=== PATIENT | female | born 1970 | race Caucasian/White ===

== ENCOUNTER 2021-05-03 03:31 | Emergency (ER) | payer OTHER ==
[~2021-05-03] VITALS: Ht 162.6 cm; Wt 50.3 kg
[2021-05-03 03:45] VITALS: BP 132/94
--- NOTE | 2021-05-03 04:15 | NUR ---
[employer] AT BEDSIDE.
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
== END 2021-05-03 04:24 | disposition left against medical advice (07) ==
LOC: ER 03:42
DX: Z53.21 Procedure and treatment not carried out due to patient leaving prior to being seen by health care provider (principal); M25.522 Pain in left elbow; F41.9 Anxiety disorder, unspecified

== ENCOUNTER 2021-05-14 09:38 | Emergency (ER) | payer OTHER ==
[~2021-05-14] VITALS: Ht 162.6 cm; Wt 48.1 kg
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
--- NOTE | 2021-05-14 12:36 | NUR ---
PT SLEEPING IN BED, EASILY AROUSABLE. VS STABLE
[2021-05-14] MEDS ORDERED: NAPR-1009 PO (13:58)
--- NOTE | 2021-05-14 14:04 | NUR ---
PT WAITING TO SPEAK WITH [employer] HELPER
[2021-05-14 14:40] VITALS: BP 142/76
--- NOTE | 2021-05-14 15:12 | NUR ---
PT SLEEPING IN BED, EASILY AROUSABLE
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
--- NOTE | 2021-05-14 17:53 | NUR ---
Patient discharged to home in stable condition. Written and verbal after care instructions given. Patient verbalizes understanding of instruction.
== END 2021-05-14 17:54 | disposition home or self-care (01) ==
LOC: ER 09:45
DX: S00.83XA Contusion of other part of head, initial encounter (principal); R68.84 Jaw pain; F41.9 Anxiety disorder, unspecified; F31.9 Bipolar disorder, unspecified; Z88.5 Allergy status to narcotic agent; Z79.1 Long term (current) use of non-steroidal anti-inflammatories (NSAID); Z60.2 Problems related to living alone; W22.8XXA Striking against or struck by other objects, initial encounter; Y93.89 Activity, other specified; Y92.89 Other specified places as the place of occurrence of the external cause; Y99.8 Other external cause status
CPT/HCPCS: 70486-TC